=== PATIENT | female | born 1990 | race Caucasian/White ===

== ENCOUNTER 2018-08-31 08:46 | Emergency (ER) | payer BC, OTHER ==
[~2018-08-31] VITALS: Ht 167.6 cm; Wt 127.0 kg
[~2018-08-31 08:46] MED LIST: DOCU-131 PO; IBUP-1222 PO; OXYC-302 PO
--- NOTE | 2018-08-31 09:12 | NUR ---
BP CUFF AND PULSE OX IN PLACE. VS UPDATED IN CHART. PT REPORTS FLU-LIKE SYMPTOMS FOR SIX DAYS. COUGH, NASAL CONGESTION, NAVA, BODY ACHES AND FEVER. PT TAKING TYLENOL AT HOME, RECEIVED TORADOL SHOT AT [facility] TWO DAYS AGO WHICH HELPED. LIGHTS DIMMED, CALL LIGHT WITHIN REACH, FAMILY AT BS.
[2018-08-31] MEDS ORDERED: ONDANSETRON ODT 4 MG PO ONE (09:30)
[2018-08-31] MEDS ORDERED: DIPHENHYDRAMINE 50 MG/ML, 1ML IM ONE (09:30)
[2018-08-31] MEDS ORDERED: KETOROLAC 30 MG/1 ML IM ONE (09:30)
[2018-08-31] MEDS ORDERED: KETOROLAC 30 MG/1 ML ONE (09:40)
[2018-08-31] MEDS ORDERED: ONDANSETRON ODT 4 MG ONE (09:40)
[2018-08-31] MEDS ORDERED: DIPHENHYDRAMINE 50 MG/ML, 1ML ONE (09:40)
[2018-08-31 09:53] LABS: BASOPHILS # (AUTO) 0.01 x10^3/uL (0-0.1); BASOPHILS % (AUTO) 0 % (0-1); EOSINOPHILS # (AUTO) 0.17 x10^3/uL (0-0.4); EOSINOPHILS % (AUTO) 4 % (1-7); LYMPHOCYTES # (AUTO) 1.29 x10^3/uL (1-3.4); LYMPHOCYTES % (AUTO) 28 % (22-44); MD NO; MEAN CORPUSCULAR HEMOGLOBIN 28.6 pg (27.0-34.8); MEAN CORPUSCULAR HGB CONC 32.9 g/dL (32.4-35.8); MEAN CORPUSCULAR VOLUME 86.9 fL (80-100); MEAN PLATELET VOLUME 10.2 fL (7.4-10.4); MONOCYTES % (AUTO) 4 % (2-9); NEUTROPHILS # (AUTO) 2.95 x10^3/uL (1.8-6.8); NEUTROPHILS % (AUTO) 64 % (42-75); PLATELET COUNT 119 x10^3/uL (130-400); RED BLOOD COUNT 4.25 x10^6/uL (3.82-5.3); RED CELL DISTRIBUTION WIDTH 13.4 % (9.6-15.2)
[2018-08-31 09:54] LABS: ALBUMIN 3.4 g/dL (3.4-5.0); ANION GAP 8 mmol/L (5-15); CALCIUM 8.1 mg/dL (8.5-10.1); CHLORIDE 105 mmol/L (98-107); CREATININE 0.81 mg/dL (0.55-1.02)
--- NOTE | 2018-08-31 09:55 | NUR ---
MEDS GIVEN PER ERP ORDER FOR 9/10 NAVA, SLIGHT NAUSEA AND BODY ACHES. CALL LIGHT WITHIN REACH. URINE COLLECTED/SENT TO LAB.
[2018-08-31] MEDS ORDERED: POTASSIUM CHLORIDE 20 MEQ TAB.ER.PRT ONE (10:10)
[2018-08-31 10:12] LABS: MICROSCOPIC AUTO
[2018-08-31 10:17] LABS: CULTURE INDICATED? YES
--- NOTE | 2018-08-31 10:17 | NUR ---
POTASSIUM GIVEN PER ERP ORDER. FLU SWAB COLLECTED/SENT BY ERP. PT TO CT.
[2018-08-31] MEDS ORDERED: POTASSIUM CHLORIDE 20 MEQ TAB.ER.PRT PO ONE (10:30)
[2018-08-31 10:36] LABS: RAPID INFLUENZA A Negative (Negative); RAPID INFLUENZA B Negative (Negative)
[2018-08-31] MEDS ORDERED: METOCLOPRAMIDE 5 MG/ML, 2ML ONE (11:14)
[2018-08-31] MEDS ORDERED: METOCLOPRAMIDE 5 MG/ML, 2ML IVPush ONE (11:30)
--- NOTE | 2018-08-31 11:32 | NUR ---
IV PLACED, REGLAN GIVEN PER ERP ORDER FOR 6/10 NAVA. CALL LIGHT WITHIN REACH, LIGHTS DIMMED.
[2018-08-31 12:22] VITALS: BP 114/52
--- NOTE | 2018-08-31 12:23 | NUR ---
TASK RN: PT RPTS NAVA PAIN "MUCH BETTER" Patient/Caregiver given discharge instructions and they have confirmed that they understand the instructions. Patient ambulatory with steady gait.
== END 2018-08-31 12:48 | disposition home or self-care (01) ==
LOC: ED 12:41
DX: R00.0 Tachycardia, unspecified (principal); R51 Headache; E87.6 Hypokalemia
CPT/HCPCS: 36415; 70450; 80048; 81001; 82040; 85025; 87086; 87400; 96372; 96374; 99284; J1200; J1885; J2765; Q0162